=== PATIENT | female | born 1945 | race Caucasian/White ===

== ENCOUNTER → 2022-12-18 10:46 | Outpatient (REF) | payer MEDICARE, OTHER, SELFPAY ==
--- NOTE | 2022-12-18 10:52 | CA_ITS ---
Transthoracic Echocardiogram Patient (Last, First, Middle): Gael Apr, Gender: Female Date of : 1945 Age: 77 Procedure Date: 12/18/2022 Procedure Type: Transthoracic Echocardiogram Location: OP Height: 172.72 cm Weight: 81.65 kg BSA: 1.95 m2 Heart Rate: bpm BP: 118 / 60 mmHg [employer] [id number]: TO Referring MD: Adriana Noble MD Symptoms: I35.2 Study Quality: Fair ECG Rhythm: Sinus Conclusions: - The left ventricular systolic function is normal. The calculated ejection fraction is 63% by biplane method. - A bioprosthetic aortic valve is present. The prosthetic aortic valve appears to be functioning normally. Findings Left Ventricle Normal left ventricular cavity size. There is mildly increased left ventricular wall thickness. The left ventricular systolic function is normal. The calculated ejection fraction is 63% by biplane method. There is no evidence of regional wall motion abnormalities. Evidence suggests grade I (mild) diastolic dysfunction. Right Ventricle Moderately increased right ventricular cavity size. There is normal right ventricular systolic function. Atria The left atrium is normal in size. The right atrium is mildly dilated. Aortic Valve A bioprosthetic aortic valve is present. The prosthetic aortic valve appears to be functioning normally. There is no aortic valve regurgitation. Mitral Valve There is mild mitral annular calcification. There is trace mitral valve regurgitation. There is no mitral valve stenosis. Pulmonic Valve There is trace pulmonic valve regurgitation. Tricuspid Valve Normal tricuspid valve structure. There is mild tricuspid valve regurgitation. There is no evidence of pulmonary hypertension. Great Vessels The asc aorta is normal in size. Venous The inferior vena cava is normal in size and collapses greater than 50% with inspiration. Pericardium/Pleural There is a trivial pericardial effusion. Prior Study Comparison No prior study available for comparison. Measurements 2D Linear Measurements LVOT Diam: 2.10 3.0+(-)1.3 cm 2D Systolic Function EF 4C: 63.90 >55% EF 2C: 57.80 >55% EF BiP: 62.80 >55% Mitral Valve MV Pk E: 0.64 MV PK A: 0.86 MV Decel Time: 273.00 E/A: 0.80 E'Lateral: 5.66 E'Medial: 5.00 E/E' Med: 12.90 E/E' Lat: 11.40 PHT: 80.00 MVA PHT: 2.75 Decel Morrison: 2.35 Aortic Valve AoV Pk Adrian: 2.57 AoV Mn Adrian: 1.71 AoV VTI: 0.62 AoV Pk Grad: 26.00 Aov Mn Grad: 13.00 AMELIA Cont.VTI: 1.52 LVOT LVOT Pk Adrian: 1.09 LVOT Mn Adrian: 0.77 LVOT VTI: 0.27 LVOT Pk Grad: 5.00 LVOT Mn Grad: 3.00 LVOT Diam: 2.10 LVOT Area: 3.46 Diastolic Function MV Pk E: 0.64 MV Pk A: 0.86 E/A: 0.80 E'Medial: 5.00 E/E' Med: 12.90 E' Laterial: 5.66 E/E' Lat: 11.40 Right Ventricle TAPSE (mm): 27.70 TVS' Adrian: 13.70 Tricuspid Valve TR Pk Adrian: 2.36 TR Pk Grad: 22.00 RA Press: 3.00 RVSP: 25.00 Great Vessels Aorta Sinus of Valsalva: 3.24 2.0-3.5 cm Ao Asc: 3.80 2.1-3.4 cm Ao Arch: 3.20 Updated in Other Vendor System with Status of Final Jericho Ortega MD electronically signed on 12/20/2022 9:38:17 AM with status of Final
== END ==
LOC: HO.CARD 10:46
PROVIDERS: Visit Provider Surgery
DX: I35.2 Nonrheumatic aortic (valve) stenosis with insufficiency (principal)
CPT/HCPCS: 93306

== ENCOUNTER → 2022-12-18 10:52 | Outpatient (BNV) | payer MEDICARE, OTHER, SELFPAY | PROVIDERS: Visit Provider Internal Medicine | DX: I35.2 Nonrheumatic aortic (valve) stenosis with insufficiency (principal) | CPT/HCPCS: 93306 ==